=== PATIENT | female | born 1990 | race Caucasian/White ===

== ENCOUNTER → 2021-11-01 14:05 | Observation (INO) ==
[2021-11-01 12:08] LABS: Bilirubin,Urine Negative (Negative); Blood,Urine Negative (Negative); Clarity,Urine Turbid (Clear); Color,Urine Yellow (Yellow); Glucose,Urine (UA) Normal (Normal); Ketones,Urine Negative (Negative); Leukocyte Esterase,Urine Large (Negative); Nitrite,Urine Negative (Negative); Protein,Urine Trace mg/dL (Neg-Trace); Specific Gravity,Urine > 1.030 (1.010-1.025); Urobilinogen,Urine Normal (Normal)
[2021-11-01 12:13] LABS: Bacteria,Urine Few per hpf (None-Few); Mucus,Urine Few per lpf (None-Few); RBC,Urine 0-3 per hpf (0-3); Squamous Epithelial Cell,Urine Moderate per hpf (None-Few)
[~2021-11-01 14:05] MED LIST: Ringers Solution, Lactated 1,000 ML IVC ONE; Ringers Solution, Lactated 1,000 ML ONE
== END | disposition home or self-care (01) ==
LOC: 1NENULAB
PROVIDERS: ADMIT Student in an Organized Health Care Education/Training Program; ATTEND Student in an Organized Health Care Education/Training Program

== ENCOUNTER → 2021-12-28 15:49 | Observation (INO) | END | disposition home or self-care (01) | LOC: 1NENULAB | PROVIDERS: ADMIT Obstetrics & Gynecology; ATTEND Obstetrics & Gynecology ==

== ENCOUNTER 2022-01-10 14:52 | Observation (INO) ==
[2022-01-10] MEDS ORDERED: EPHEDrine 50 MG/ML VIAL IVP PRN (15:55)
[2022-01-10] MEDS ORDERED: Epidural Premix (fent/bupiv) 110 ML EP SCH (16:00)
== END 2022-01-10 16:56 | disposition home or self-care (01) ==
LOC: 1NENULAB
PROVIDERS: ADMIT Advanced Practice Midwife; ATTEND Advanced Practice Midwife

== ENCOUNTER → 2022-01-24 21:44 | Observation (INO) ==
[2022-01-24 18:51] LABS: Basophils % 0.3 %; Eosinophils # 0.1 K/mcL (0.0-0.6); Hemoglobin 13.1 g/dL (11.5-15.4); Immature Granulocytes % 0.4 % (0-4); Lymphocytes # 1.8 K/mcL (0.6-4.6); Lymphocytes % 24.7 %; Mean Corpuscular HGB Conc 33.6 g/dL (31.6-35.5); Mean Corpuscular Hemoglobin 29.5 pg (28.0-33.3); Mean Corpuscular Volume 87.8 fL (83.0-100.0); Monocytes # 0.5 K/mcL (0.0-1.3); Monocytes % 6.9 %; Neutrophils # 4.7 K/mcL (1.6-8.9); Platelet Count 148 K/mcL (140-400); Red Blood Count 4.44 M/mcL (3.82-4.97); Red Cell Distribution Width 13.4 % (11.5-14.5); Segmented Neutrophils % 66.7 %; White Blood Count 7.1 K/mcL (4.3-11.1)
[2022-01-24 19:12] LABS: Protein/Creatinine Ratio,Urine 0.14 mg/mg (0.00-0.20)
[2022-01-24 19:17] LABS: Alanine Aminotransferase 14 Units/L (7-52); Aspartate Amino Transferase 14 Units/L (13-39); BUN/Creatinine Ratio 26 (6-26); Blood Urea Nitrogen 11 mg/dL (6-20); Lactate Dehydrogenase 120 Units/L (140-271); Uric Acid 3.5 mg/dL (2.3-7.6); eGFR For African Americans > 60 (> 60); eGFR For Non-African Americans > 60 (> 60)
== END | disposition home or self-care (01) ==
LOC: 1NENULAB
PROVIDERS: ADMIT Obstetrics & Gynecology; ATTEND Obstetrics & Gynecology

== ENCOUNTER 2022-01-25 10:40 | Inpatient (IN) ==
[2022-01-25] MEDS ORDERED: CeFAZolin Syr 3,000MG/30 ML 3,000 MG/30 ML SYRINGE IVPB ONE (10:48)
[2022-01-25] MEDS ORDERED: Famotidine 20 MG/2 ML VIAL IVP ONE (10:48)
[2022-01-25] MEDS ORDERED: Metoclopramide 10 MG/2 ML VIAL IVP ONE (10:48)
[2022-01-25] MEDS ORDERED: Ringers Solution, Lactated 1,000 ML IVC ONE (10:48)
[2022-01-25] MEDS ORDERED: Oxytocin 30 UNIT/503 ML BAG IVC SCH (11:00)
[2022-01-25] MEDS ORDERED: Ringers Solution, Lactated 1,000 ML IVC SCH (11:00)
[2022-01-25 11:25] LABS: Basophils % 0.3 %; Eosinophils # 0.1 K/mcL (0.0-0.6); Eosinophils % 0.8 %; Hematocrit 39.4 % (35.3-44.9); Hemoglobin 13.1 g/dL (11.5-15.4); Immature Granulocytes % 0.5 % (0-4); Lymphocytes # 1.5 K/mcL (0.6-4.6); Lymphocytes % 23.2 %; Mean Corpuscular HGB Conc 33.2 g/dL (31.6-35.5); Mean Corpuscular Volume 87.2 fL (83.0-100.0); Mean Platelet Volume 11.9 fL (9.4-12.4); Monocytes # 0.5 K/mcL (0.0-1.3); Monocytes % 7.7 %; Neutrophils # 4.3 K/mcL (1.6-8.9); Platelet Count 145 K/mcL (140-400); Red Blood Count 4.52 M/mcL (3.82-4.97); Red Cell Distribution Width 13.4 % (11.5-14.5); Segmented Neutrophils % 67.5 %; White Blood Count 6.4 K/mcL (4.3-11.1)
[2022-01-25] MEDS ORDERED: *HR* HYDROmorphone PF 0.5 MG/0.5 ML SYRINGE IVP PRN (11:34)
[2022-01-25] MEDS ORDERED: Ondansetron 4 MG/2 ML VIAL IVP PRN ×2 (11:34→14:42)
[2022-01-25] MEDS ORDERED: *HR* Morphine Sulfate/PF 10 MG/10 ML AMPUL ONE (11:41)
[2022-01-25] MEDS ORDERED: EPHEDrine 50 MG/ML VIAL ONE (11:42)
[2022-01-25] MEDS ORDERED: Acetaminophen IV 1,000 MG/100 ML BAG IVPB ONE (11:42)
[2022-01-25] MEDS ORDERED: Ketorolac 30 MG/ML VIAL ONE (11:42)
[2022-01-25] MEDS ORDERED: *HR* FentaNYL (PF) 100 MCG/2 ML VIAL ONE (11:42)
[2022-01-25 12:10] LABS: Amphetamine Screen,Urine Negative ng/mL (Cutoff=1000); Barbiturate Screen,Urine Negative ng/mL (Cutoff=200); Benzodiazepines Screen,Urine Negative ng/mL (Cutoff=200); Cannabinoid Screen,Urine Negative ng/mL (Cutoff = 50); Cocaine Screen,Urine Negative ng/mL (Cutoff= 300); Opiate Screen,Urine Negative ng/mL (Cutoff=300); Phencyclidine Screen,Urine Negative ng/mL (Cutoff=25)
[2022-01-25] MEDS ORDERED: *HR* Midazolam HCl 2 MG/2 ML VIAL ONE (12:18)
[2022-01-25] MEDS ORDERED: Ringers Solution, Lactated 1,000 ML ONE ×2 (12:49→13:32)
[2022-01-25] MEDS ORDERED: Simethicone 80 MG TAB.CHEW PO PRN (14:42)
[2022-01-25] MEDS ORDERED: Metoclopramide 10 MG/2 ML VIAL IVP PRN (14:42)
[2022-01-25] MEDS ORDERED: 0.9 % Sodium Chloride 1,000 ML IVC SCH (14:42)
[2022-01-25] MEDS: Ibuprofen 600 MG TABLET PO SCH (17:19)
[2022-01-25] MEDS: Acetaminophen 325 MG TABLET PO SCH (20:27)
[2022-01-25] MEDS: *HR* Enoxaparin 80 MG/0.8 ML SYRINGE SQ SCH (21:24)
[2022-01-26] MEDS: Ibuprofen 600 MG TABLET PO SCH ×4 (00:23→18:17)
[2022-01-26] MEDS: Acetaminophen 325 MG TABLET PO SCH ×4 (00:23→18:17)
[2022-01-26 05:33] LABS: Basophils % 0.3 %; Eosinophils % 0.3 %; Hematocrit 34.2 % (35.3-44.9); Immature Granulocytes % 0.6 % (0-4); Lymphocytes # 1.5 K/mcL (0.6-4.6); Mean Corpuscular Hemoglobin 29.6 pg (28.0-33.3); Mean Corpuscular Volume 89.5 fL (83.0-100.0); Mean Platelet Volume 12.2 fL (9.4-12.4); Monocytes # 0.5 K/mcL (0.0-1.3); Neutrophils # 6.8 K/mcL (1.6-8.9); Platelet Count 115 K/mcL (140-400); Red Blood Count 3.82 M/mcL (3.82-4.97); Red Cell Distribution Width 13.6 % (11.5-14.5); Segmented Neutrophils % 75.8 %
[2022-01-26 05:50] LABS: Hemoglobin 11.3 g/dL (11.5-15.4)
[2022-01-26] MEDS: Prenatal Vit/FA 1 EACH TABLET PO SCH (08:03)
[2022-01-26] MEDS: *HR* Enoxaparin 80 MG/0.8 ML SYRINGE SQ SCH ×2 (08:05→20:04)
[2022-01-26] MEDS: *HR* OxyCODONE Immed Rel 5 MG TABLET PO PRN ×4 (08:19→20:04)
[2022-01-26 19:51] VITALS: O2SAT 98
[2022-01-27] MEDS: Ibuprofen 600 MG TABLET PO SCH ×3 (00:14→12:29)
[2022-01-27] MEDS: *HR* OxyCODONE Immed Rel 5 MG TABLET PO PRN ×2 (00:14→12:24)
[2022-01-27] MEDS: Acetaminophen 325 MG TABLET PO SCH ×4 (00:14→07:40)
[2022-01-27 07:29] VITALS: BP 124/58; PULSE 65; TEMP 97.8
[2022-01-27] MEDS: Prenatal Vit/FA 1 EACH TABLET PO SCH (07:40)
[2022-01-27] MEDS: *HR* Enoxaparin 80 MG/0.8 ML SYRINGE SQ SCH (07:41)
== END 2022-01-27 12:45 | disposition home or self-care (01) | DRG 540 ==
LOC: 1NENULAB 10:40 → 1NENUOBS 16:21
PROVIDERS: ADMIT Obstetrics & Gynecology; ATTEND Obstetrics & Gynecology